=== PATIENT | male | born 1990 | race Two or more races ===

== ENCOUNTER 2020-01-13 21:26 | Emergency (ER) | payer BC ==
[2020-01-13] MEDS ORDERED: Diphtheria,Pertussis(Acell),Tetanus Vaccine 0.5 ML Syringe IM ONE (21:50)
--- NOTE | 2020-01-13 21:56 | EDM.PDOC ---
ED HPI GENERAL MEDICAL PROBLEM - General Chief Complaint: Genitourinary Problem Stated Complaint: SICK Time Seen by Provider: 01/13/20 21:47 Source of Information: Reports: Patient History Limitations: Reports: No Limitations - History of Present Illness INITIAL COMMENTS - FREE TEXT/NARRATIVE: Patient states that he was having sex with his girlfriend and noted that he was bleeding from the bottom of his penis. Patient denies any trauma. Patient denies any foreign objects. Onset: Today Duration: Hour(s): Location: Reports: Other (Penis) Severity: Mild Improves with: Reports: Rest Worsens with: Reports: None Context: Reports: Trauma Associated Symptoms: Reports: No Other Symptoms - Related Data Allergies Allergy/AdvReac Type Severity Reaction Status Date / Time No Known Allergies Allergy Verified 01/13/20 21:50 Home Meds: Home Meds . [No Known Home Meds] 01/13/20 [History] ED ROS GENERAL - Review of Systems Review Of Systems: See Below Constitutional: Reports: No Symptoms HEENT: Reports: No Symptoms Respiratory: Reports: No Symptoms Cardiovascular: Reports: No Symptoms Endocrine: Reports: No Symptoms GI/Abdominal: Reports: No Symptoms : Reports: Other (Small area of healed blood on the bottom of his penis. No active bleeding, pinpoint) Musculoskeletal: Reports: No Symptoms Skin: Reports: No Symptoms Neurological: Reports: No Symptoms Psychiatric: Reports: No Symptoms Hematologic/Lymphatic: Reports: No Symptoms Immunologic: Reports: No Symptoms ED EXAM, RENAL/ - Physical Exam Exam: See Below Exam Limited By: No Limitations General Appearance: Alert, WD/WN, No Apparent Distress Ears: Normal External Exam, Normal Canal, Normal TMs Nose: Normal Inspection Throat/Mouth: Normal Inspection Head: Atraumatic Neck: Normal Inspection Respiratory/Chest: No Respiratory Distress, Lungs Clear, No Accessory Muscle Use Cardiovascular: Normal Peripheral Pulses, Regular Rate, Rhythm, No JVD, No Murmur GI/Abdominal: Normal Bowel Sounds (Male) Exam: Other (Small pinpoint lesion on the bottom of his penis/no active bleeding) Rectal (Males) Exam: Deferred Back Exam: Normal Inspection Extremities: Normal Inspection Neurological: Alert, Oriented Psychiatric: Normal Affect, Normal Mood Skin Exam: Warm, Dry, Intact Lymphatic: No Adenopathy Course - Vital Signs Text/Narrative:: Patient's presents with possible bleeding from his penis. Patient has no evidence of bleeding has a small pinpoint lesion that is healed no bleeding. Will discharge patient home instructed to use bacitracin ointment and not have sex till is completely healed Last Recorded V/S: Last Vital Signs Temp 97.1 F 01/13/20 21:47 Pulse 57 L 01/13/20 21:47 Resp 20 01/13/20 21:47 BP 148/86 H 01/13/20 21:47 Pulse Ox 96 01/13/20 21:47 - Orders/Labs/Meds Orders: Active Orders 24 hr Category Date Time Status Vaccines to be Administered [RC] PER UNIT ROUTINE Care 01/13/20 21:50 Ordered Diphth,Pertuss(Acell),Tet Vac [Adacel] Med 01/13/20 21:50 Once 0.5 ml IM .ONCE ONE Departure - Departure Time of Disposition: 21:56 Disposition: Home, Self-Care 01 Condition: Good Clinical Impression: Penile trauma - Discharge Information Referrals: PCP,None [Primary Care Provider] - Sepsis Event Note - Evaluation Sepsis Screening Result: No Definite Risk - Focused Exam Vital Signs: Vital Signs Temp Pulse Resp BP Pulse Ox 01/13/20 21:47 97.1 F 57 L 20 148/86 H 96 Date Exam was Performed: 01/13/20 Time Exam was Performed: 21:51 - My Orders Last 24 Hours: My Active Orders 01/13/20 21:50 Vaccines to be Administered [RC] PER UNIT ROUTINE Diphth,Pertuss(Acell),Tet Vac [Adacel] 0.5 ml IM .ONCE ONE - Assessment/Plan Last 24 Hours: My Active Orders 01/13/20 21:50 Vaccines to be Administered [RC] PER UNIT ROUTINE Diphth,Pertuss(Acell),Tet Vac [Adacel] 0.5 ml IM .ONCE ONE
== END 2020-01-13 22:35 | disposition home or self-care (01) ==
LOC: MW.ED 21:26
DX: S39.94XA Unspecified injury of external genitals, initial encounter (principal); X58.XXXA Exposure to other specified factors, initial encounter; Z23 Encounter for immunization
CPT/HCPCS: 90471; 90715; 99282; 99283

== ENCOUNTER 2022-02-26 19:49 | Emergency (ER) | payer BC ==
[2022-02-26] MEDS ORDERED: Acetaminophen/Codeine 120-12 MG/5 ML Soln 5 ML UD Cup PO ONE (20:45)
[2022-02-26] MEDS ORDERED: Doxycycline 100 MG Cap PO ONE (21:54)
== END 2022-02-26 22:09 | disposition home or self-care (01) ==
LOC: MW.ED 19:49
DX: J40 Bronchitis, not specified as acute or chronic (principal); Z87.891 Personal history of nicotine dependence
CPT/HCPCS: 71046; 99283; A9270

== ENCOUNTER 2024-01-25 20:45 | Emergency (ER) | payer BC, OTHER ==
[2024-01-25 21:25] LABS: BASOPHILS ABSOLUTE AUTO 0.09 K/uL (0.00-0.20); BASOPHILS PERCENT AUTO 0.9 % (0.0-1.0); EOSINOPHILS ABSOLUTE AUTO 0.78 K/uL (0.00-0.45); HEMATOCRIT 44.9 % (42.0-52.0); HEMOGLOBIN 15.6 g/dL (14.0-18.0); IMMATURE GRAN ABSOLUTE AUTO 0.03 K/uL (0.00-0.05); IMMATURE GRAN PERCENT AUTO 0.3 % (0.0-0.4); LYMPHOCYTES ABSOLUTE AUTO 2.97 K/uL (1.00-4.80); LYMPHOCYTES PERCENT AUTO 30.5 % (24.0-44.0); MEAN CORPUSCULAR HEMOGLOBIN 29.7 pg (28.0-32.0); MEAN CORPUSCULAR HGB CONC 34.7 g/dL (32.0-36.0); MEAN CORPUSCULAR VOLUME 85.4 fL (83.0-99.0); MEAN PLATELET VOLUME 9.9 fL (9.4-12.4); MONOCYTES ABSOLUTE AUTO 0.77 K/uL (0.00-0.80); MONOCYTES PERCENT AUTO 7.9 % (0.0-8.0); NEUTROPHILS ABSOLUTE AUTO 5.11 K/uL (1.80-7.70); NEUTROPHILS PERCENT AUTO 52.4 % (41.0-71.0); PLATELET COUNT,PLT 263 K/uL (150-400); RED BLOOD CELL COUNT 5.26 M/uL (4.52-5.90); WHITE BLOOD CELL COUNT,WBC 9.75 K/uL (3.9-11.3)
[2024-01-25] MEDS: Sodium Chloride 0.9% 1,000 ML IV ONE (21:36)
[2024-01-25] MEDS: Metoclopramide 10 MG/2 ML SDV IVPUSH ONE (21:36)
[2024-01-25] MEDS: diphenhydrAMINE 50 MG/ML SDV IVPUSH ONE (21:38)
[2024-01-25] MEDS: Sodium Chloride 0.9% 2.5 ML Syringe FLUSH PRN (21:47)
[2024-01-25] MEDS: Sodium Chloride 0.9% 10 ML Syringe FLUSH PRN (21:47)
[2024-01-25 21:57] LABS: A/G RATIO 1.1 (0.9-1.6); ALBUMIN 3.8 g/dL (3.4-5.0); BILIRUBIN TOTAL 0.3 mg/dL (0.2-1.0); CALCIUM 8.8 mg/dL (8.5-10.1); CARBON DIOXIDE,CO2 26.7 mmol/L (21.0-32.0); EST CRCL DRUG DOSING (CG) 121.02 mL/min; POTASSIUM,K 3.8 mmol/L (3.5-5.1); PROTEIN TOTAL,TP 7.3 g/dL (6.4-8.2)
== END 2024-01-25 23:01 | disposition home or self-care (01) ==
LOC: MW.ED 20:45
DX: R51.9 Headache, unspecified (principal); R03.0 Elevated blood-pressure reading, without diagnosis of hypertension
CPT/HCPCS: 36415; 70450; 80053; 85025; 96374; 96375; 99284; J1200; J2765; J3490; J7030

== ENCOUNTER 2024-06-01 05:21 | Emergency (ER) | payer OTHER ==
[2024-06-01] MEDS: Ketorolac 30 MG/ML SDV IM ONE (06:01)
[2024-06-01] MEDS: Acetaminophen/HYDROcodone 325-5 MG Tab PO ONE (06:01)
[2024-06-01] MEDS: Orphenadrine 60 MG/2 ML Inj IM ONE (06:01)
== END 2024-06-01 07:08 | disposition home or self-care (01) ==
LOC: MW.ED 05:21
DX: M54.50 Low back pain, unspecified (principal); Z75.8 Other problems related to medical facilities and other health care
CPT/HCPCS: 72131; 96372; 99283; A9270; J1885; J2360

== ENCOUNTER 2025-01-21 19:53 | Emergency (ER) | payer SELFPAY ==
[2025-01-21 20:07] LABS: BASOPHILS ABSOLUTE AUTO 0.07 K/uL (0.00-0.20); BASOPHILS PERCENT AUTO 0.6 % (0.0-1.0); EOSINOPHILS ABSOLUTE AUTO 0.35 K/uL (0.00-0.45); EOSINOPHILS PERCENT AUTO 3.1 % (0.0-6.0); HEMATOCRIT 44.6 % (42.0-52.0); HEMOGLOBIN 15.5 g/dL (14.0-18.0); IMMATURE GRAN ABSOLUTE AUTO 0.04 K/uL (0.00-0.05); IMMATURE GRAN PERCENT AUTO 0.3 % (0.0-0.4); LYMPHOCYTES ABSOLUTE AUTO 4.09 K/uL (1.00-4.80); LYMPHOCYTES PERCENT AUTO 35.7 % (24.0-44.0); MEAN CORPUSCULAR HEMOGLOBIN 29.4 pg (28.0-32.0); MEAN CORPUSCULAR HGB CONC 34.8 g/dL (32.0-36.0); MEAN CORPUSCULAR VOLUME 84.6 fL (83.0-99.0); MONOCYTES ABSOLUTE AUTO 0.64 K/uL (0.00-0.80); MONOCYTES PERCENT AUTO 5.6 % (0.0-8.0); NEUTROPHILS ABSOLUTE AUTO 6.26 K/uL (1.80-7.70); NEUTROPHILS PERCENT AUTO 54.7 % (41.0-71.0); PLATELET COUNT,PLT 265 K/uL (150-400); RED BLOOD CELL COUNT 5.27 M/uL (4.52-5.90); WHITE BLOOD CELL COUNT,WBC 11.45 K/uL (3.9-11.3)
[2025-01-21 20:32] LABS: A/G RATIO 1.1 (0.9-1.6); ALBUMIN 3.9 g/dL (3.4-5.0); BILIRUBIN TOTAL 0.5 mg/dL (0.2-1.0); CALCIUM 8.9 mg/dL (8.5-10.1); CREATININE 1.1 mg/dL (0.8-1.3); EST CRCL DRUG DOSING (CG) 93.73 mL/min; POTASSIUM,K 3.7 mmol/L (3.5-5.1); PROTEIN TOTAL,TP 7.6 g/dL (6.4-8.2)
[2025-01-21] MEDS: Aspirin 81 MG Tab.Chew PO ONE (20:39)
[2025-01-21 20:54] LABS: D-DIMER QUANTITATIVE < 0.19 mg/L FEU (0.00-0.50)
== END 2025-01-22 01:39 | disposition home or self-care (01) ==
LOC: MW.ED 19:53
DX: R07.89 Other chest pain (principal); Z75.8 Other problems related to medical facilities and other health care
CPT/HCPCS: 36415; 71045; 80053; 83735; 83880; 84484; 85025; 85379; 85610; 93005; 99285; A9270

== ENCOUNTER 2025-06-18 06:01 | Emergency (ER) | payer BC ==
[2025-06-18] MEDS ORDERED: Sodium Chloride 0.9% 10 ML Syringe FLUSH PRN (06:16)
[2025-06-18] MEDS ORDERED: Sodium Chloride 0.9% 2.5 ML Syringe FLUSH PRN (06:16)
[2025-06-18 06:30] LABS: MEAN PLATELET VOLUME 9.5 fL (9.4-12.4); NRBC ABSOLUTE 0.00 K/uL (0.00-0.02); NRBC PERCENT 0.0 /100WBC (0.0-0.2); PLATELET COUNT,PLT 314 K/uL (150-400); RED BLOOD CELL COUNT 5.38 M/uL (4.52-5.90); WHITE BLOOD CELL COUNT,WBC 15.27 K/uL (3.9-11.3)
[2025-06-18] MEDS: Ondansetron 4 MG/2 ML SDV IVPUSH ONE (06:31)
[2025-06-18 06:55] LABS: A/G RATIO 1.2 (0.9-1.6); ALANINE AMINOTRANSFERASE,ALT 51.0 IU/L (14-63); ASPARTATE AMNIOTRANSFERASE,AST 20.0 IU/L (15-37); BILIRUBIN TOTAL 0.6 mg/dL (0.2-1.0); BLOOD UREA NITROGEN,BUN 18.0 mg/dL (7.0-18.0); CARBON DIOXIDE,CO2 26.2 mmol/L (21.0-32.0); CHLORIDE,CL 102.0 mmol/L (98-107); CREATININE 1.1 mg/dL (0.8-1.3); EST CRCL DRUG DOSING (CG) 96.78 mL/min; GLUCOSE RANDOM 144.0 mg/dL (74-106); POTASSIUM,K 3.3 mmol/L (3.5-5.1); PROTEIN TOTAL,TP 7.5 g/dL (6.4-8.2); SODIUM,NA 139.0 mmol/L (136-148)
[2025-06-18 06:57] LABS: ESTIMATED GFR 90.0 mL/min (>60)
[2025-06-18 07:00] LABS: LYMPHOCYTES ABSOLUTE MAN 6.87 K/uL (1.00-4.80); LYMPHOCYTES PERCENT MAN 45 % (24-44); MONOCYTES ABSOLUTE MAN 0.61 K/uL (0.00-0.80); MONOCYTES PERCENT MAN 4 % (0-8); SEG NEUTROPHILS ABSOLUTE MAN 6.72 K/uL (1.80-7.70); SEG NEUTROPHILS PERCENT MAN 44 % (41-71)
[2025-06-18 07:01] LABS: BASOPHILS ABSOLUTE MAN 0.31 K/uL (0.00-0.20); BASOPHILS PERCENT MAN 2 % (0-1); EOSINOPHILS ABSOLUTE MAN 0.76 K/uL (0.00-0.45); EOSINOPHILS PERCENT MAN 5 % (0-6)
== END 2025-06-18 10:26 | disposition home or self-care (01) ==
LOC: MW.ED 06:01
DX: K80.20 Calculus of gallbladder without cholecystitis without obstruction (principal); E88.89 Other specified metabolic disorders; I10 Essential (primary) hypertension; E11.9 Type 2 diabetes mellitus without complications; Z79.899 Other long term (current) drug therapy; Z79.84 Long term (current) use of oral hypoglycemic drugs; Z87.891 Personal history of nicotine dependence
CPT/HCPCS: 36415; 74022; 76705; 80053; 83690; 85025; 93005; 96361; 96374; 96375; 99284; J2270; J2405; J7040; 93010